=== PATIENT | female | born 1945 | race Caucasian/White ===

== ENCOUNTER → 2020-09-12 | Outpatient (CLI) | payer MEDICARE ==
--- NOTE | 2020-09-12 16:24 | RAD ---
EXAM: Right foot, 3 views; right ankle, 2 views. HISTORY: Pain. COMPARISON: None. FINDINGS: 5 views of the right foot and ankle are obtained. There is no acute fracture, dislocation o r subluxation. The ankle mortise intact. There is no osteochondral lesion. There is minimal degenerat salvador change involving the first metatarsal head. There is an incidental os trigonum. IMPRESSION: No acute osseous finding. Electronically signed by: Ofelia Horton MD (09/12/2020 4:22 PM) [id number]
== END ==
LOC: DXRAD 15:42
PROVIDERS: ATTEND Podiatrist Foot & Ankle Surgery
DX: M19.071 Primary osteoarthritis, right ankle and foot (principal)
CPT/HCPCS: 73610; 73620

== ENCOUNTER 2020-09-23 13:59 | Emergency (ER) | payer MEDICARE ==
[~2020-09-23] VITALS: Ht 166.4 cm; Wt 100.9 kg
[2020-09-23] MEDS ORDERED: ACETAMINOPHEN 325 MG TABLET PO ONE (14:30)
[2020-09-23] MEDS ORDERED: predniSONE 20 MG TABLET PO ONE (14:45)
--- NOTE | 2020-09-23 14:59 | RAD ---
Noncontrast CT scan of the head without comparison for severe headache. TECHNIQUE: Contiguous helical 5 mm axial images are obtained from skull base to the vertex. No IV con trast was administered. FINDINGS: There is no evidence of acute territorial infarction, or intracranial hemorrhage. There is no mass, mass effect, or midline shift. The ventricles and subarachnoid spaces are grossly unremarkab le. No extra axial fluid collections are identified. The posterior fossa, brainstem, and bilateral or bits are normal in appearance. Mastoid air cells are clear. Visualized paranasal sinuses are clear. N o significant osseous abnormalities are identified. IMPRESSION: 1. No acute intracranial abnormality. One or more of the following individualized dose reduction techniques were utilized for this examinat ion: 1. Automated exposure control; 2. Adjustment of the mA and/or kV according to patient size; 3. U se of iterative reconstruction technique Electronically signed by: Kevin Graves MD (09/23/2020 2:57 PM) [id number]
[2020-09-23 16:25] LABS: BILIRUBIN,URINE NEG (NEG); CLARITY,URINE HAZY; COLOR,URINE YELLOW; GLUCOSE,URINE NEG (NEG)
[2020-09-23 16:26] LABS: HYALINE CASTS, URINE FEW /HPF; NITRITE,URINE NEG (NEG); UROBILINOGEN,URINE 0.2 mg/dL (0.2 mg/dL); WBC,URINE >40 /HPF (0-4)
[2020-09-23 16:27] LABS: BACTERIA,URINE FEW /HPF (0-FEW); SQUAMOUS EPITHELIAL CELL,UR MANY /LPF
[2020-09-23 17:05] VITALS: BP 122/59
[2020-09-23] MEDS ORDERED: CEPH500C PO (17:18)
[2020-09-23] MEDS ORDERED: PRED20TA PO (17:18)
--- NOTE | 2020-09-23 17:18 | PHYS DOC ---
Past History Past Medical History: Hypertension, Hypothyroid Past Surgical History: Tonsillectomy, Other Additional Past Surgical Histo: MIOMECTOMY; TOE OPERATION; PLATE IN RIGHT ARM FOR FX REPAIR Alcohol Use: Occasionally Social History Narrative: NONE FOR A YEAR Adult General Chief Complaint Chief Complaint: ALLERGIC REACTION HPI HPI Patient is a 75-year-old female presents to the emergency department via EMS complaining of an allergic reaction at home. Patient states that she is allergic to sulfa medications. Patient states she felt some urinary pressure today and thought she may have had a urinary tract infection so she took some old antibiotics from her medicine cabinet. Patient states the antibiotic was called [facility] [employer]. Patient states shortly after that she started breaking out in hives. Patient's dates her daughter gave her 50 mg of p.o. Benadryl, 20 mg of p.o. Pepcid, and used an EpiPen injection into her right thigh. Patient's daughter then called EMS to bring her to the emergency department. Patient states her allergic reaction symptoms were hives all over her chest back and arms. Patient states she was not short of breath nor does she feel any problems breathing or swallowing. Patient denies recent fever or chills, denies chest pains, or chest palpitations. Patient does complain of headache since receiving epi pen injection. Patient states this headache is a 10/10 on a 1-10 pain scale. Patient reports the headache as a throbbing type of pain on the left front side of her head. Patient states the light does not hurt her eyes. Patient denies any other physical complaints or physical concerns Review of Systems Review of Systems 14 body systems of review of systems have been reviewed. See HPI for pertinent positives and negative responses, otherwise all other systems are negative, nonpertinent or noncontributory. Current Medications Current Medications Current Medications Medications (Trade) Dose Ordered Sig/Aden Start Time Stop Time Status Last Admin Dose Admin Acetaminophen (Tylenol) 650 mg 1X ONCE 09/23/20 14:30 09/23/20 14:31 DC 09/23/20 14:29 650 MG Prednisone (Prednisone) 60 mg 1X ONCE 09/23/20 14:45 09/23/20 14:41 DC Allergies Allergies Allergies Coded Allergies Type Severity Reaction Last Updated Verified Penicillins Allergy Unknown 09/23/20 Yes Sulfa (Sulfonamide Antibiotics) Allergy Unknown 09/23/20 Yes codeine Allergy Unknown 09/23/20 Yes lidocaine Allergy Unknown 09/23/20 Yes Physical Exam Physical Exam Constitutional: Well developed, well nourished, no acute distress, non-toxic appearance. HENT: Normocephalic, atraumatic, bilateral external ears normal, oropharynx moist, no oral exudates, nose normal. Eyes: PERRLA, EOMI, conjunctiva normal, no discharge. Neck: Normal range of motion, no tenderness, supple, no stridor. Cardiovascular:Heart rate regular rhythm, no murmur, heart sounds S1-S2. Lungs & Thorax: Bilateral breath sounds clear to auscultation all lung kurtz. Abdomen: Bowel sounds normal, soft, no tenderness, no masses, no pulsatile masses. Skin: Warm, dry, no erythema, no rash. Back: No tenderness, no CVA tenderness. Extremities: No tenderness, no cyanosis, no clubbing, ROM intact, no edema. Neurologic: Alert and oriented X 3, normal motor function, normal sensory function, no focal deficits noted. Psychologic: Affect normal, judgement normal, mood normal. Current Patient Data Vital Signs Vital Signs Date Time Temp Pulse Resp B/P (MAP) Pulse Ox O2 Delivery O2 Flow Rate FiO2 09/23/20 15:27 67 24 121/65 (83) 96 Nasal Cannula 2.0 09/23/20 14:16 96.2 Lab Results Laboratory Tests Test 09/23/20 15:35 Urine Collection Type Unknown Urine Color Yellow Urine Clarity Hazy Urine pH 6.0 Urine Specific [place] >=1.030 Urine Protein 100 mg/dl (NEG-TRACE) Urine Glucose (UA) Neg mg/dL (NEG) Urine Ketones (Stick) Neg mg/dL (NEG) Urine Blood Small (NEG) Urine Nitrite Neg (NEG) Urine Bilirubin Neg (NEG) Urine Urobilinogen Dipstick 0.2 mg/dL (0.2 mg/dL) Urine Leukocyte Esterase Small (NEG) Urine RBC 11-20 /HPF (0-2) Urine WBC >40 /HPF (0-4) Urine Squamous Epithelial Cells Many /LPF Urine Bacteria Few /HPF (0-FEW) Urine Hyaline Casts Few /HPF Urine Mucus Mod /LPF EKG EKG [] Radiology/Procedures Radiology/Procedures PATIENT: POOL MCCORMICK ACCOUNT: [id number] : 1945 LOCATION: ER AGE: 75 SEX: F EXAM STATUS: REG ER ORD. PHYSICIAN: NAOMI LEVY APRN REASON: HEADACHE SEVERE PROCEDURE: CT HEAD WO CONTRAST Noncontrast CT scan of the head without comparison for severe headache. TECHNIQUE: Contiguous helical 5 mm axial images are obtained from skull base to the vertex. No IV contrast was administered. FINDINGS: There is no evidence of acute territorial infarction, or intracranial hemorrhage. There is no mass, mass effect, or midline shift. The ventricles and subarachnoid spaces are grossly unremarkable. No extra axial fluid collections are identified. The posterior fossa, brainstem, and bilateral orbits are normal in appearance. Mastoid air cells are clear. Visualized paranasal sinuses are clear. No significant osseous abnormalities are identified. IMPRESSION: 1. No acute intracranial abnormality. One or more of the following individualized dose reduction techniques were utilized for this examination: 1. Automated exposure control; 2. Adjustment of the mA and/or kV according to patient size; 3. Use of iterative reconstruction technique Electronically signed by: Kevin Ward MD (09/23/2020 2:57 PM) [id number] DICTATED AND SIGNED BY: KEVIN WARD MD DATE: 09/23/20 1454 CC: NAOMI LEVY APRN; EMERGENCY,DEPARTMENT; PCP,NO ~MTH0 0 Heart Score Risk Factors: Risk Factors: DM, Current or recent (<one month) smoker, HTN, HLP, family history of CAD, obesity. Risk Scores: Risk Factors: DM, Current or recent (<one month) smoker, HTN, HLP, family history of CAD, obesity. Course & Med Decision Making Course & Med Decision Making Pertinent Labs and Imaging studies reviewed. (See chart for details) 75-year-old female, vital signs reviewed, presents emergency department with complaints of a allergic reaction at home. Patient's allergic reaction symptoms had resolved upon her arrival to the ER via EMS. Patient was treated at home by her daughter who is an emergency department nurse. Patient was given an EpiPen injection into her thigh, 50 mg of p.o. Benadryl, 20 mg of p.o. Pepcid. Patient was given 125 mg of Solu-Medrol in route by EMS parts room associate. Patient complained of headache upon arrival to the ER, CT head ordered. Will monitor patient on cardiac technologist, pulse ox, blood pressure for reoccurring allergic reaction symptoms. Urine assay. CT head negative for acute process, upon reexamination of the patient, patient in no apparent distress, patient had no reexacerbation of allergic reaction symptoms. Patient's urine concerning for simple cystitis. Will treat with p.o. Keflex, also will give prescription of 20 mg prednisone for 5 days once daily. Discussed findings with patient, patient gave verbal understanding of new antibiotic for UTI, prednisone once a day for 5 days, will not take Bactrim DS any longer and will discard medication when she gets home. Patient gave verbal understanding of home care instructions, antibiotic use, see her primary care physician soon, return to the emergency department precautions and concerns. Patient discharged home. Dragon Disclaimer Dragon Disclaimer This electronic medical record was generated, in whole or in part, using a voice recognition dictation system. Departure Departure: Impression: Primary Impression: Allergic reaction Additional Impression: UTI (urinary tract infection) Disposition: 01 DC HOME SELF CARE/HOMELESS Condition: GOOD Referrals: PCP,NO (PCP) Patient Instructions: Drug Allergy, Urinary Tract Infection Additional Instructions: Please take prescriptions as directed, follow-up with your primary care doctor for reexamination of your urinary tract infection symptoms, please return to the emergency department for worsening symptoms or other concerns. EMERGENCY DEPARTMENT GENERAL DISCHARGE INSTRUCTIONS Thank you for coming to [facility] (ED) today and trusting us with you care. We trust that you had a positivie experience in our Emergency Department. If you wish to speak to the department management, you may call the director at [phone]. YOUR FOLLOW UP INSTRUCTIONS ARE FOLLOWS: 1. Do you have a private Doctor? If you do not have a private doctor, please ask for a resource list of physicians or clinics that may be able to assist you with follow up care. 2. The Emergency Physician has interpreted your x-rays. The X-Ray specialist will also review them. If there is a change in the findings, you will be notified in 48 hours when at all possible. 3. A lab test or culture has been done, your results will be reviewed and you will be notified if you need a change in treatment. ADDITIONAL INSTRUCTIONS AND INFORMATION: 1. Your care today has been supervised by a physician who is specially trained in emergency care. Many problems require more than one evaluation for a complete diagnosis and treatment. We recommend that you schedule your follow up appointment as recommended to ensure complete treatment of you illness or injury. If you are unable to obtain follow up care and continue to have a problem, or if your condition worsens, we recommend that you return to the ED. 2. We are not able to safely determine your condition over the phone nor are we able to give sound medical advice over the phone. For these safety reasons, if you call for medical advice we will ask you to come to the ED for further evaluation. 3. If you have any questions regarding these discharge instructions please call the ED at [phone]. SAFETY INFORMATION: In the interest of safety, wellness, and injury prevention; we encourage you to wear your sealbelt, if you smoke; quite smoking, and we encourage family to use a protective helmet for bicycling and other sporting events that present an increased risk for head injury. IF YOUR SYMPTOMS WORSEN OR NEW SYMPTOMS DEVELOP, OR YOU HAVE CONCERNS ABOUT YOUR CONDITION; OR IF YOUR CONDITION WORSENS WHILE YOU ARE WAITING FOR YOUR FOLLOW UP APPOINTMENT; EITHER CONTACT YOUR PRIMARY CARE DOCTOR, THE PHYSICIAN WHOSE NAME AND NUMBER YOU WERE GIVEN, OR RETURN TO THE ED IMMEDIATELY. Scripts Prednisone (PREDNISONE) 20 Mg Tablet 1 TAB PO DAILY for allergies for 5 Days, #5 TAB 0 Refills Prov: NAOMI LEVY APRN 09/23/20 Cephalexin (CEPHALEXIN) 500 Mg Capsule 1 CAP PO BID for UTI for 7 Days, #14 CAP 0 Refills Prov: NAOMI LEVY APRN 09/23/20 Problem Qualifiers Primary Impression: Allergic reaction Encounter type: initial encounter Qualified Codes: T78.40XA - Allergy, unspecified, initial encounter Additional Impression: UTI (urinary tract infection) Urinary tract infection type: site unspecified Hematuria presence: with hematuria Qualified Codes: N39.0 - Urinary tract infection, site not specified; R31.9 - Hematuria, unspecified NAOMI LEVY APRN Sep 23, 2020 17:18
== END 2020-09-23 17:38 | disposition home or self-care (01) ==
LOC: ER 13:59
DX: T78.40XA Allergy, unspecified, initial encounter (principal); N39.0 Urinary tract infection, site not specified; R31.9 Hematuria, unspecified; I10 Essential (primary) hypertension; E03.9 Hypothyroidism, unspecified; Z88.0 Allergy status to penicillin; Z88.2 Allergy status to sulfonamides; Z88.5 Allergy status to narcotic agent; Z88.4 Allergy status to anesthetic agent; X58.XXXA Exposure to other specified factors, initial encounter
CPT/HCPCS: 70450; 81001; 87086; 99284-25

== ENCOUNTER → 2021-04-14 | Outpatient (CLI) | payer MEDICARE ==
[~2021-04-14] MED LIST: CEPH500C PO; PRED20TA PO
--- NOTE | 2021-05-03 14:51 | RAD ---
DATE: 04/14/2021 EXAM: MAMMO MARGARITO SCREENING BILATERAL HISTORY: Screening. COMPARISON: No prior exam. New baseline. This study was interpreted with the benefit of Computerized Aided Detection (CAD). Breast Density: SCATTERED The breast parenchyma shows scattered fibroglandular densities. Breast parenchyma level B. FINDINGS: There are multiple bilateral circumscribed masses. On the right, there is a 7 mm circumscribed mass slightly medial and inferior to the posterior nipple line, 5.7 cm posterior to the nipple. There is a 8 mm circumscribed mass in the retroareolar right breast. There is a 4 mm circumscribed mass in the upper outer right breast anterior depth. There is a 3 mm circumscribed mass containing a calcification in the upper outer left breast, 3 cm posterior to the nipple. There is a 1.4 cm ovoid focal asymmetry in the lower inner left breast, 6.5 cm posterior to the nipple. Lobulated 5 mm circumscribed mass in the retroareolar left breast. No suspicious calcifications or architectural distortion. IMPRESSION: Multiple bilateral circumscribed masses. These are likely benign and may be cysts or lymph nodes, however correlation with bilateral breast ultrasound is recommended as there are no prior mammograms for comparison. BI-RADS CATEGORY: 0 INCOMPLETE: NEEDS ADDITIONAL IMAGING EVALUATION AND/OR PRIOR MAMMOGRAMS FOR COMPARISON. RECOMMENDED FOLLOW-UP: ADD ADDITIONAL IMAGING PQRS compliance statement: Patient information was entered into a reminder system with a target due date for the next mammogram. Mammography is a sensitive method for finding small breast cancers, but it does not detect them all and is not a substitute for careful clinical examination. A negative mammogram does not negate a clinically suspicious finding and should not result in delay in biopsying a clinically suspicious abnormality. "Our facility is accredited by the [employer] Mammography Program."
== END ==
LOC: MAMMO 14:05
PROVIDERS: ATTEND Family Medicine
DX: Z12.31 Encounter for screening mammogram for malignant neoplasm of breast (principal); N63.41 Unspecified lump in right breast, subareolar; N63.11 Unspecified lump in the right breast, upper outer quadrant
CPT/HCPCS: 77063; 77067

== ENCOUNTER → 2021-05-17 | Outpatient (CLI) | payer MEDICARE ==
--- NOTE | 2021-05-17 14:56 | RAD ---
US BREAST BILAT 05/17/2021 1:07 PM INDICATION: Callback for bilateral masses on screening mammogram. COMPARISON: Bilateral mammogram 04/14/2021 TECHNIQUE: Targeted sonographic evaluation of the right and left breast was performed. FINDINGS: Right: 1. At the 3:00 position, 6 cm from the nipple there is a circumscribed cyst with through transmission measuring 0.5 x 0.2 x 0.3 cm. 2. At the 3:00 position, 6 cm from the nipple there is an adjacent hypoechoic possibly solid mass idalia suring 0.6 x 0.5 x 0.5 cm with minimal posterior acoustic enhancement. Finding is probably benign and could represent a fibroadenoma versus complicated cyst. 3 month follow-up ultrasound and mammographi c follow-up is recommended. 3. There is a 0.3 x 0.2 x 0.2 cm partly anechoic mass with through transmission which favors a cyst o r complicated cyst at the 6:00 position 5 cm from the nipple. 4. At the 11:00 position, 4 cm from the nipple there is a 0.3 x 0.3 x 0.2 cm hypoechoic cyst with thr ough transmission. This may represent a complicated cyst. Findings are benign. 5. At the 9:00 position, 3 cm from the nipple there is a hypoechoic mass measuring 0.3 x 2.5 x 0.3 cm with minimal posterior shadowing. This nodule is isoechoic to hypoechoic and well marginated with pa rallel orientation. Findings are probably benign and 3 month follow-up ultrasound and mammographic im aging could be of benefit. 6. At the 12:00 position, 3.5 cm from the nipple there is a 0.6 x 0.5 x 0.5 cm hypoechoic mass which is circumscribed with posterior acoustic enhancement. This is isoechoic to hypoechoic with parallel o rientation. Findings are probably benign and 3 month follow-up ultrasound and mammographic follow-up is recommended. Left: 1. At the 12:00 position, 3 cm from the nipple there is a circumscribed 0.4 x 0.4 x 0.3 cm hypoechoic nodule with through transmission. This may represent a cyst or complicated cyst. 2. At the 6:00 position left breast there is a tubular hypoechoic structure for 7 minutes and the nip ple which may represent a dilated duct. Findings are probably benign and 3 month follow-up ultrasound evaluation as well as mammographic correlation could be of benefit. IMPRESSION: Probably benign findings of the breast bilaterally as detailed above. 3 month follow-up ultrasound an d mammographic evaluation is recommended. BI-RADS category: 3; Probably Benign Recommendations: Follow-up imaging in 3 months is recommended. Electronically signed by: Joslyn Parrish MD (05/17/2021 2:53 PM) [id number]
== END ==
LOC: US 12:39
PROVIDERS: ATTEND Family Medicine
DX: N60.01 Solitary cyst of right breast (principal); N63.11 Unspecified lump in the right breast, upper outer quadrant; N63.12 Unspecified lump in the right breast, upper inner quadrant; N63.14 Unspecified lump in the right breast, lower inner quadrant; N63.21 Unspecified lump in the left breast, upper outer quadrant
CPT/HCPCS: 76641-50

== ENCOUNTER → 2021-05-18 | Outpatient (CLI) | payer MEDICARE ==
--- NOTE | 2021-05-18 13:44 | RAD ---
Right upper quadrant abdominal ultrasound 05/18/2021 INDICATION: Upper quadrant pain COMPARISON STUDY: None Discussion: Ultrasound evaluation of the right upper quadrant was performed. Static images are submit maría to PACS. Exam somewhat limited by patient body habitus. Pancreas is nonvisualized. IVC and aorta are poorly vi sualized without gross abnormality. The liver is mildly enlarged measuring 19 cm longitudinally. The liver is diffusely hyperechoic suggesting hepatic steatosis. Portal vein appears to be grossly patent . The gallbladder is unremarkable evidence of wall thickening, stones, or sludge. The right kidney co ntains an exophytic cyst measuring 1.3 cm in diameter but is otherwise unremarkable measuring 9.6 cm in length. The common bile duct is nondilated measuring 5 mm. IMPRESSION: 1. Hepatic steatosis and mild hepatomegaly 2. 1.3 cm right renal cyst Electronically signed by: Garfield Tabor MD (05/18/2021 1:41 PM) [id number]
== END ==
LOC: US 10:42
PROVIDERS: ATTEND Family Medicine
DX: K76.0 Fatty (change of) liver, not elsewhere classified (principal); R16.0 Hepatomegaly, not elsewhere classified; N28.1 Cyst of kidney, acquired
CPT/HCPCS: 76705

== ENCOUNTER → 2021-06-01 | Day surgery (SDC) | payer MEDICARE ==
[~2021-06-01] MED LIST changes: +FAMO-63 PO; +HYDR12.572 PO; +LEVO137T2 PO; +LORA-176 PO
== END | disposition home or self-care (01) ==
LOC: SURG 11:26
PROVIDERS: ATTEND Anesthesiology
DX: M54.59 Other low back pain (principal); G89.29 Other chronic pain; Z88.0 Allergy status to penicillin; Z88.2 Allergy status to sulfonamides; Z88.8 Allergy status to other drugs, medicaments and biological substances
CPT/HCPCS: 99203; G0463